=== PATIENT | male | born 1950 | race Caucasian/White ===

== ENCOUNTER → 2018-08-23 | Outpatient (CLI) | payer BC, MEDICARE ==
--- NOTE | 2018-08-23 14:34 | EXE ---
[place] [address] STRESS ECHOCARDIOGRAM Name: ARNEL GRIJALVA Room: [facility]#: [id number] Admission: 08/23/18 Attend Phys: Arnel Griffin Discharge: Date of : 52 Date of Service: 08/23/18 1434 Report #: [id number] THIS REPORT FOR: //name// APPROVED REPORT Study performed: 08/23/2018 11:31:09 Exam: Stress Echocardiogram Indication: Abnormal EKG Patient Location: Out-Patient Stress Nurse: Debbie Baez RN Supervising Physician: Arnel Santoyo MD Ht: 6 ft 2 in HR: 63 bpm BP: 114/72 mmHg Medical History Cardiac Risk Factors: Tobacco History (Former), FHX of CAD Procedure The patient underwent an Exercise Stress Test using the Timi Protocol. Blood pressure, heart rate, and EKG were monitored. An Echocardiogram was performed by medical chief technician in four stages in quad fashion. At peak stress, four selected images were obtained and placed side by side with resting images for comparison. Stress Test Details Stress Test: Exercise stress testing was performed using a Timi protocol. HR Resting HR: 63 bpm Max Heart Rate (APMHR): 153 bpm Max HR Achieved: 129 bpm Target HR (85% APMHR): 130 bpm % of APMHR: 84 Recovery HR: 80 bpm HR response to stress: Normal HR response to stress BP Resting BP: 114/72 mmHg Max BP: 185/97 mmHg Recovery BP: 141/56 mmHg BP response to stress: Normal blood pressure response to stress. ECG Resting ECG: Sinus Rhythm, nonspecific ST-T [address] [address] STRESS ECHOCARDIOGRAM Name: ARNEL GRIJALVA Room: [facility]#: [id number] Admission: 08/23/18 Attend Phys: Arnel Griffin Discharge: Date of : 52 Date of Service: 08/23/18 1434 Report #: [id number] Stress ECG: Sinus Rhythm, nonspecific ST-T abnormalities ST Change: None Arrhythmia: None Recovery ECG: Sinus Rhythm, nonspecific ST-T abnormalities Recovery ST Change: None Recovery Arrhythmia: None Clinical Reason for Termination: Maximal effort, Dyspnea, Leg pain/Claudication Exercise duration: 5 min 19 sec Highest Stage Achieved: Stage 2: 2.5 mph at 12% grade. Exercise capacity: 7.05 METs The patient tolerated standard Timi protocol exercise without significant cardiac symptoms. Stress ECG Conclusion The baseline 12-lead EKG shows sinus rhythm with T-wave inversion in the inferior and anterolateral leads. EKGs obtained during and post exercise showed sinus rhythm and sinus tachycardia without significant ST or T wave changes when compared to baseline. There were no stress-induced arrhythmias. Pre-Stress Echo The resting Echocardiogram showed normal left ventricular contractility with an estimated Ejection Fraction of about 55-60%. Post-Stress Echo The stress Echocardiogram showed abnormal left ventricular contractility with an estimated Ejection Fraction of about 60-65%. There appears to be stress-induced hypokinesis involving the septum. Endocardial definition in other regions was not adequate for evaluation. Clinical There appears to be stress-induced hypokinesis involving the septum. Endocardial definition in other regions was not adequate for evaluation. Conclusion Clinical Response: Non-ischemic Exercise Capacity: Average Stress ECG Response: Non-ischemic Stress Echo Images: [place] [address] STRESS ECHOCARDIOGRAM Name: ARNEL GRIJALVA Room: [facility]#: [id number] Admission: 08/23/18 Attend Phys: Arnel Griffin Discharge: Date of : 52 Date of Service: 08/23/18 1434 Report #: [id number] Post stress echocardiographic images suggest a stress-induced wall motion abnormality involving at least the septum. Other romero were not well visualized. This would be considered a high risk study. Other Information Study Quality: Fair <Conclusion> Post stress echocardiographic images suggest a stress-induced wall motion abnormality involving at least the septum. Other romero were not well visualized. This would be considered a high risk study. <ELECTRONICALLY SIGNED> By: Arnel Santoyo MD, [facility] 08/23/18 1434 143 1434 Arnel Santoyo MD, FACC /INF
== END ==
LOC: M.CRD 08-22 13:00
DX: I21.19 ST elevation (STEMI) myocardial infarction involving other coronary artery of inferior wall (principal); R94.31 Abnormal electrocardiogram [ECG] [EKG]; R61 Generalized hyperhidrosis; R06.09 Other forms of dyspnea

== ENCOUNTER → 2018-08-23 | Outpatient (CLI) | payer OTHER | LOC: M.CT 09:53 | DX: Z13.6 Encounter for screening for cardiovascular disorders (principal) ==

== ENCOUNTER 2018-09-02 09:00 | Observation (INO) | payer BC, MEDICARE ==
[~2018-09-02] VITALS: Ht 190.5 cm; Wt 107.5 kg
[2018-09-02] VITALS (18 sets, daily range): BP systolic 125–150; BP diastolic 74–99
[~2018-09-02 09:00] MED LIST: ASPIR 8181 MG PO; CENTRUM SILVER1 EAC4 PO; COMBIGAN EYE DR10 ML INTRAOCULR; LATANOPROST 0.2.5 ML OPHTHALMIC
[2018-09-02 09:29] LABS: HEMATOCRIT 45.5 % (42.0-52.0); HEMOGLOBIN 15.6 gm/dL (14.0-18.0); MCH 30.8 pg (26.0-34.0); MCHC 34.2 g/dL (28.0-37.0); MPV 7.8 fl. (7.2-11.1); RBC 5.05 mil/uL (4.50-6.00); RDW-CV 12.9 % (10.5-14.5); WBC 12.6 thou/uL (4.0-11.0)
[2018-09-02 09:39] LABS: APTT 28.9 Seconds (25.0-31.3); PROTIME 10.5 Seconds (9.20-11.50)
[2018-09-02 09:49] LABS: ANION GAP 9 mmol/L (7-16); BUN 13 mg/dL (7-18); CALCIUM 8.8 mg/dL (8.5-10.1); CHLORIDE 102 mmol/L (98-107); CO2 28 mmol/L (21-32); CREATININE 1.1 mg/dL (0.6-1.3); GLUCOSE 103 mg/dL (70-99); POTASSIUM 4.2 mmol/L (3.5-5.1); SODIUM 139 mmol/L (136-145)
[2018-09-02 09:54] LABS: CHOLESTEROL 182 mg/dL (<200); HDL CHOLESTEROL 41 mg/dL (>40); LDL CHOLESTEROL 107 mg/dL (<100); TC:HDL 4.4 Ratio (Not establshd); TRIGLYCERIDE 172 mg/dL (<150); VLDL 34 mg/dL (<40)
[2018-09-02 10:00] LABS: SERUM ASSESSMENT Clear
--- NOTE | 2018-09-02 13:00 | NUR ---
RECEIVED REPORT FROM ASSOCIATE GENETICS PROFESSOR AND ASSUMED CARE OF PT @ 1300.PT IS A/O X4,VSS,TRACING SR WITH 1ST DEGREE ON THE MONITOR.POST CATH VSS.RIGHT RADIAL CATH SITE CLEAN,DRY,AND INTACT.IV RIGHT AC PATENT WITH IVF INFUSING PER ORDERS.PT IS CALM AND COOPERATIVE WITH NO C/O PAIN AT TIME OF ASSESSMENT.PT IS UP AD DONALD IN ROOM. AT BEDSIDE.WILL CONTINUE TO MONITOR.
--- NOTE | 2018-09-02 16:36 | EKG ---
[place] [address] ELECTROCARDIOGRAM REPORT Name: ARNEL GRIJALVA Room: [address] M.R.#: [id number] Admission: 09/02/18 Attend Phys: Arnel Santoyo MD Discharge: Date of : 52 Report #: [id number] THIS REPORT FOR: //name// [facility] Test Date: 2018-09-02 Test Time: 10:22:37 Pat Name: ARNEL GRIJALVA Department: Room: [facility] Gender: M Therapy Assistant: : 1950 Requested By: Arnel Santoyo Order Number: [id number] Deborah MD: Arnel Santoyo Measurements Intervals [place] Rate: 66 P: 50 [place]: 201 QRS: -20 QRSD: 104 T: -52 QT: 440 QTc: 461 Interpretive Statements Sinus rhythm Inferior infarct, age indeterminate No previous ECG available for comparison Electronically Signed On 09-02-2018 16:36:42 PHOTOGRAPHIC AIDE by Arnel Santoyo [email or web address] <ELECTRONICALLY SIGNED> By: Arnel Santoyo MD, [facility] 09/02/18 1636 1022 1022 Arnel Santoyo MD, FACC /EPI
--- NOTE | 2018-09-02 16:37 | EKG ---
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 09/02/18 1637 1356 1356 Kojo Santoyo MD, FACC /EPI
--- NOTE | 2018-09-02 17:05 | CARD ---
[address] [address] CARDIAC CATH REPORT Name: KOJO GRIJALVA Room: [facility] [place]#: [id number] Admission: 09/02/18 Attend Phys: Kojo Santoyo MD Discharge: Date of : 52 Report #: [id number] THIS REPORT FOR: //name// APPROVED REPORT Study performed: 09/02/2018 10:53:27 Patient Details Patient Status: OBS Room #: The patient is a 68 year-old male Event Personnel Kojo Santoyo Lead Ruby On Rails Developer, Sabrina Steele Monitor, Saeed Rubi (Diana) Stephanie, , Iqra Portillo RN Wreath Machine Tender, Rajinder Soliz Leisure Studies Professor Procedures Performed Art Access - R radial artery , Selective Right and Left Coronary AngiographyLeft Heart Cath w/or w/o Coronaries [id number] LHC , Left VentriculogramDES Place w/wo Plasty Single CIRC [id number] Indication Positive stress test Risk Factors Tobacco History () Admission/Lab Medications/Medications given during procedure Heparin Unfract. Procedure Narrative The patient was brought electively to the Cardiac Catheterization Laboratory and was prepped and draped in a sterile manner. The right wrist was infiltrated with 2% Lidocaine subcutaneous anesthesia. A Slender Glidesheath sheath was inserted into the right radial artery. Coronary angiography was performed using coronary diagnostic catheters. The right coronary system was accessed and visualized with a [place] 4.0 6fr catheter. The left coronary system was accessed and visualized with a [place] 4.0 6fr catheter. The left ventricle was accessed and visualized with a PC: Pig 6fr catheter. Left ventricular/Aortic Valve gradient assessed via catheter pullback. Left ventriculogram was performed in SHEA projection. Closure device was deployed with a 6 Fr Vasc-Band Reg 24cm. The patient tolerated the procedure well and there [place] [address] CARDIAC CATH REPORT Name: KOJO GRIJALVA Room: [address]#: [id number] Admission: 09/02/18 Attend Phys: Kojo Santoyo MD Discharge: Date of : 52 Report #: [id number] the procedure. There was no hematoma. Intraoperative Conscious Sedation Sedation start time: 11:28 Case end Time: 12:46 Fentanyl 50 mcg Versed 2 mg Fluoro Time: 12 minutes Dose: DAP 864589 cGycm2 2171.58 mGy Contrast Type and Amount: Omnipaque 280 ml Coronary Angiography The patient's coronary anatomy is right dominant. Diagnostic Cath Left Main Normal. LAD 10% plaquing in the proximal and mid vessel. The distal vessel is normal. Diagonal 1 10% plaquing proximally. Diagonal 2 Normal. Circumflex The circumflex has an anomalous takeoff from the proximal right coronary artery. There is 90% narrowing in the proximal portion of the vessel. The remainder the vessel is free of significant disease. OM1 Normal. Right Coronary Moderately plaqued proximally. Subtotally occluded in the midportion after the takeoff of the acute marginal branch. The distal vessel is seen to fill faintly beyond this with right coronary injections. R PDA Appears normal. Fills extensively by [id number] collaterals. RPLV Appears normal. Fills extensively by [id number]-[id number] collaterals. Left Ventriculography The left ventricle is mild to moderately dilated in size with decreased contractility. The left ventricular ejection fraction is estimated to be 35-40%. There is 1+ mitral insufficiency. The inferior wall appears almost aneurysmal and certainly akinetic. Hemodynamics The aortic pressure is 123/73 mmHg with a mean of mmHg. The left ventricular pressure is 131/-8 mmHg with a mean of mmHg. The left ventricular end diastolic pressure is 9 mmHg. There was no gradient across the aortic valve upon [place] [address] CARDIAC CATH REPORT Name: KOJO GRIJALVA Room: [address] M.R.#: [id number] Admission: 09/02/18 Attend Phys: Kojo Santoyo MD Discharge: Date of : 52 Report #: [id number] ventricle to the aorta revealed no gradient across the aortic valve. PCI Technique Lesion Anticoagulation was achieved with Heparin. Patient was preloaded with Brillinta. Percutaneous coronary intervention was performed on the proximal circumflex artery segment. The lesion stenosis prior to intervention was 90% with LESLEE 3 flow. A 6F MPA 1 Guide Catheter was used to engage the rca ostium. A IG: BMW 190cm Interventional Guidewire was used to cross the lesion. BALLOON DILATION A Balloon catheter Trek RX 2.5 X 12 was inserted and inflated up to 8.00atm for 12seconds. Repeat angiography revealed the following post-dilatation results: 50% stenosis. Circumflex artery had an anamolous take-off from the proximal rca and appeared to extend to the lateral wall of the left ventricle by extending posterior to the ascending aorta. STENT DEPLOYMENT A drug-eluting stent Rickie RX Stent 2.23W90bl was inserted and inflated up to 10.00atm for 13seconds. Additional Inflation: 10.00atm for 9seconds. Tom wire was required to advance the stent to the area of stenosis because of acute take-off of the circumflex from the proximal rca. Final angiography reveals 0 % stenosis with LESLEE 3 flow. Conclusion 1. Two-vessel coronary artery disease as outlined above. 2. Moderate left ventricular systolic dysfunction with wall motion abnormalities as above. 3. Minimally elevated left particular end-diastolic pressure. 4. successful placement of a single drug eluting stent in the proximal portion of the anamolous circumflex artery. Recommendations Smoking Cessation Cardiac Rehabilitation Referral Aggressive Medical Therapy Medications [place] [address] CARDIAC CATH REPORT Name: KOJO GRIJALVA Room: [address] [place]#: [id number] Admission: 09/02/18 Attend Phys: Kojo Santoyo MD Discharge: Date of : 52 Report #: [id number] Diagnostic Cath Approved by: Kojo Santoyo MD Date/Time: <ELECTRONICALLY SIGNED> By: Rajinder Soliz MD, FACC 09/02/18 170 04 04Dadelma Soliz MD, FACC /INF
--- NOTE | 2018-09-02 18:22 | NUR ---
POST CATH VS COMPLETED AND STABLE.RIGHT RADIAL CATH SITE CLEAN,DRY,AND INTACT.RADIAL BAND IN PLACE WITH ALL AIR DECREASED.CARDIAC MONITORING IN PLACE WITH NO CHANGES.PT REMAINS ON ROOM AIR.IV RIGHT AC PATENT WITH IVF INFUSING PER ORDERS.PT INFORMED OF PLAN OF CARE AND COMMUNICATES UNDERSTANDING.PT HAS AMBULATED IN ROOM BY SELF.HOURLY ROUNDING COMPLETED FOR PT SAFETY.CALL LIGHT AND FALL PRECAUTIONS IN PLACE.WILL CONTINUE MONITOR FOR DURATION OF SHIFT.
[2018-09-03 03:58] VITALS: BP 147/78
[2018-09-03 04:55] LABS: HEMATOCRIT 40.6 % (42.0-52.0); HEMOGLOBIN 13.8 gm/dL (14.0-18.0); MCH 30.8 pg (26.0-34.0); MCV 90.6 fL (80.0-100.0); MPV 7.9 fl. (7.2-11.1); RBC 4.49 mil/uL (4.50-6.00); RDW-CV 12.7 % (10.5-14.5); WBC 11.3 thou/uL (4.0-11.0)
[2018-09-03 05:58] LABS: TROPONIN-I LEVEL 0.92 ng/mL (<0.06)
[2018-09-03 07:45] VITALS: BP 125/72
--- NOTE | 2018-09-03 07:49 | NUR ---
PT IS ABLE TO COMMUNICATE HIS NEEDS TO STAFF EFFECTIVELY. HE HAS DENIED THE NEED FOR PAIN MEDICATION UP TO THIS TIME. RIGHT RADIAL CATH SITE DRESSING IS C/D/I UP TO THIS TIME. VERY LIKELY DISCHARGE TODAY.
[2018-09-03 08:57] VITALS: BP 134/77
--- NOTE | 2018-09-03 09:00 | NUR ---
RECEIVED REPORT FROM SANTIAGO AND ASSUMED CARE OF PT @ 1598.PT IS A/O X4,VSS,TRACING SR ON THE MONITOR.IV PATENT AND SALINE LOCKED.CATH SITE RIGHT RADIAL CLEAN,DRY,AND INTACT.PT IS CALM AND COOPERATIVE WITH NO C/O PAIN AT TIME OF ASSESSMENT.PT IS UP AD DONALD IN ROOM.PT LEFT SITTING IN BED WITH CALL LIGHT WITHIN REACH.WILL CONTINUE TO MONITOR.
[2018-09-03] MEDS ORDERED: LIPITOR 20 MG T20 M1 PO (09:51)
[2018-09-03] MEDS ORDERED: BRILINTA90 MG PO (09:52)
[2018-09-03] MEDS ORDERED: NITROGLYCERIN0.4 MG SUBLING (09:53)
--- NOTE | 2018-09-03 10:16 | NUR ---
PT OK FOR DISCHARGE.PAPERWORK COMPLETED AND GIVEN TO PT.SCRIPTS GIVEN WITH EDUCATION.IV REMOVED.HEART MONITOR REMOVED AND RETURNED TO NURSING STATION.ALL PERSONAL BELONGINGS PACKED AND TAKEN WITH PT.PT EDUCATED ON POST RADIAL CATH RESTRICTIONS.PT WHEELED DOWN BY NURSING STAFF TO PERSONAL VEHICLE.
--- NOTE | 2018-09-03 12:14 | EKG ---
[place] [address] ELECTROCARDIOGRAM REPORT Name: KOJO GRIJALVA Room: [address]#: [id number] Admission: 09/02/18 Attend Phys: Kojo Santoyo MD Discharge: 09/03/18 Date of : 52 Report #: [id number] THIS REPORT FOR: //name// [facility] Test Date: 2018-09-03 Test Time: 08:23:44 Pat Name: KOJO GRIJALVA Department: Room: [place] [address] Gender: M Foster Care Social Worker: : 1950 Requested By: Rajinder Soliz Order Number: [id number] Reading MD: Marco A Graves Measurements Intervals [place] Rate: 63 P: 52 [place]: 198 QRS: -9 QRSD: 111 T: -60 QT: 439 QTc: 450 Interpretive Statements Sinus rhythm Inferior infarct, age indeterminate Compared to ECG 09/02/2018 13:56:02 No significant changes Electronically Signed On 09-03-2018 12:13:46 TRUCK SHOP MECHANIC by Marco A Graves [email or web address] <ELECTRONICALLY SIGNED> By: Marco A Graves MD, [facility] 09/03/18 1213 0823 0823 Marco A Graves MD, [facility] /EPI
--- NOTE | 2018-09-05 14:51 | D ---
[address] [address] DISCHARGE SUMMARY Name: ARNEL GRIJALVA Room: [address] [place]#: [id number] Admission: 09/02/18 Attend Phys: Arnel Santoyo MD Discharge: 09/03/18 Date of : 52 Report #: [id number] THIS REPORT FOR: //name// CC: Arnel Santoyo DATE OF SERVICE: 09/03/2018 FINAL DIAGNOSES: 1. Unstable angina. 2. Status post percutaneous coronary intervention electively to the patient's left circumflex coronary artery. 3. Hyperlipidemia. 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 HOSPITAL SUMMARY: The patient had been having angina type symptoms, had an abnormal workup as an outpatient and he presented for an elective cardiac catheterization and was found to have a high-grade stenosis to a circumflex coronary artery, normal LV function, and normal LAD and RCA. It is noted he has an anomalous takeoff of his circumflex from his right coronary artery, which itself was free of significant disease. He underwent successful percutaneous coronary artery intervention to the anomalous circumflex coronary artery. DISCHARGE MEDICATIONS: Will include aspirin 81 mg daily, Brilinta 90 mg p.o. b.i.d., nitroglycerin p.r.n., and atorvastatin 20 mg daily. PERTINENT LABORATORY DATA: Total cholesterol is 182, LDL was 107, HDL 41, triglycerides 172. Discharge creatinine 1.0. Discharge troponin 0.92. FOLLOWUP: He will follow up with nurse practitioner within 1 month. <ELECTRONICALLY SIGNED> By: Marco A Graves MD, FACC 09/05/18 1451 1014 1808Marco A Graves MD, FACC /nt
== END 2018-09-03 10:59 | disposition home or self-care (01) ==
LOC: M.CL 09:00 → M.TBA-CV 13:13 → M.2W 13:13
PROVIDERS: Internal Medicine Cardiovascular Disease; ADMIT Internal Medicine Cardiovascular Disease
DX: I25.110 Atherosclerotic heart disease of native coronary artery with unstable angina pectoris (principal); E78.5 Hyperlipidemia, unspecified; R94.39 Abnormal result of other cardiovascular function study; I25.2 Old myocardial infarction; R61 Generalized hyperhidrosis; R11.0 Nausea; F17.210 Nicotine dependence, cigarettes, uncomplicated; I73.9 Peripheral vascular disease, unspecified; Z98.890 Other specified postprocedural states; Z79.899 Other long term (current) drug therapy; Z72.89 Other problems related to lifestyle; Z79.82 Long term (current) use of aspirin

== ENCOUNTER 2019-02-05 07:26 | Emergency (ER) | payer BC, MEDICARE ==
[~2019-02-05] VITALS: Ht 185.4 cm; Wt 106.6 kg
[~2019-02-05 07:26] MED LIST changes: +BRILINTA90 MG PO; +LIPITOR 20 MG T20 M1 PO; +NITROGLYCERIN0.4 MG SUBLING
[2019-02-05] MEDS ORDERED: LISINOPRIL2.5 MG PO (07:43)
[2019-02-05] MEDS ORDERED: COREG6.25 MG PO (07:43)
[2019-02-05 08:03] LABS: ABSOLUTE BASOPHILS 0.1 thou/uL (0.0-0.2); ABSOLUTE EOSINOPHILS 0.3 thou/uL (0.0-0.7); ABSOLUTE LYMPHOCYTES 2.4 thou/uL (0.8-5.3); ABSOLUTE MONOCYTES 0.8 thou/uL (0.0-1.2); ABSOLUTE NEUTROPHILS 7.2 thou/uL (1.6-8.1); BASOPHILS 1.3 %; EOSINOPHILS 2.7 %; HEMATOCRIT 43.8 % (42.0-52.0); HEMOGLOBIN 15.2 gm/dL (14.0-18.0); LYMPHOCYTES 22.5 %; MCH 31.4 pg (26.0-34.0); MCHC 34.8 g/dL (28.0-37.0); MCV 90.2 fL (80.0-100.0); MONOCYTES 7.2 %; NUCLEATED RBCS 0 /100WBC; PLATELET COUNT* 214 thou/uL (150-400); POLYS 66.3 %; RBC 4.85 mil/uL (4.50-6.00); RDW-CV 13.2 % (10.5-14.5); WBC 10.9 thou/uL (4.0-11.0)
[2019-02-05 08:06] LABS: ANION GAP 9 mmol/L (7-16); BUN 15 mg/dL (7-18); CALCIUM 8.9 mg/dL (8.5-10.1); CHLORIDE 105 mmol/L (98-107); CO2 27 mmol/L (21-32); CREATININE 1.1 mg/dL (0.6-1.3); GLUCOSE 112 mg/dL (70-99); POTASSIUM 4.5 mmol/L (3.5-5.1); SODIUM 141 mmol/L (136-145)
[2019-02-05 08:18] LABS: ALBUMIN 3.6 g/dL (3.4-5.0); ALKALINE PHOSPHATASE 103 U/L (46-116); NT-PRO BRAIN NAT PEPTIDE 463 pg/mL (<300); SGOT 16 U/L (15-37); SGPT 28 U/L (30-65); TOTAL PROTEIN 7.1 g/dL (6.4-8.2); TROPONIN-I LEVEL <0.06 ng/mL (<0.06)
[2019-02-05] MEDS ORDERED: VENTOLIN HFA 1818 GM INH (10:37)
[2019-02-05] MEDS ORDERED: PREDNISONE50 MG PO (10:37)
[2019-02-05 10:51] VITALS: BP 136/74
--- NOTE | 2019-02-06 12:40 | EKG ---
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 Attendant: DEYSI : 1950 Requested By: Darius Chi Order Number: [id number] MD: Max Pickett Measurements Intervals [place] Rate: 64 P: 62 [place]: 194 QRS: 22 QRSD: 112 T: -51 QT: 414 QTc: 427 Interpretive Statements Sinus rhythm Inferior infarct, age indeterminate Minimal ST elevation, anterior leads Compared to ECG 09/03/2018 08:23:44 ST (T wave) deviation now present Myocardial infarct finding still present Electronically Signed On 02-06-2019 12:40:37 CDT by Max Pickett [email or web address] <ELECTRONICALLY SIGNED> By: Max Pickett MD, [facility] 02/06/19 1240 0749 0749 Max Pickett MD, [facility] /EPI
== END 2019-02-05 10:54 | disposition home or self-care (01) ==
LOC: M.ERS 07:26
PROVIDERS: Emergency Medicine Emergency Medical Services
DX: J40 Bronchitis, not specified as acute or chronic (principal); F17.210 Nicotine dependence, cigarettes, uncomplicated; I25.10 Atherosclerotic heart disease of native coronary artery without angina pectoris

== ENCOUNTER → 2019-06-20 | Outpatient (CLI) | payer BC, MEDICARE ==
[~2019-06-20] MED LIST changes: +COREG6.25 MG PO; +LISINOPRIL2.5 MG PO; +PREDNISONE50 MG PO; +VENTOLIN HFA 1818 GM INH
--- NOTE | 2019-07-04 08:02 | PF ---
[address] [address] PULMONARY FUNCTION REPORT Name: ARNEL GRIJALVA [id number] Admission: 06/20/19 Attend Phys: Shahid Casas DO Discharge: Date of : 52 Report #: [id number] THIS REPORT FOR: //name// CC: Shahid Casas DATE OF SERVICE: 06/20/2019 REQUESTING PHYSICIAN: Dr. Casas. FINDINGS: Spirometry reveals a severe decrease in FEV1 to 1.73, which was 45% of predicted. FVC is 3.76, which was 72% of predicted. FEV1/FVC ratio was 46%. Mid flows were severely decreased. There was no significant change seen after inhaled bronchodilator. Lung volumes by plethysmography revealed TLC to be high normal range. Residual volume was increased. Diffusion capacity was mildly diminished. The patient was unable to do the maneuvers in order to measure resistance. IMPRESSION: These studies are consistent with severe obstructive process. No significant change seen after inhaled bronchodilator. There is evidence of air trapping and a mild decrease in diffusion capacity. <ELECTRONICALLY SIGNED> By: Liz Durham MD 07/04/19 0802 1021 1142Liz Durham MD /nt
== END ==
LOC: M.PUL 13:50
DX: R05 Cough (principal); Z72.0 Tobacco use

== ENCOUNTER → 2019-09-22 | Outpatient (CLI) | payer BC, MEDICARE ==
[2019-09-22 11:59] LABS: CHOLESTEROL 140 mg/dL (<200); HDL CHOLESTEROL 51 mg/dL (>40); LDL CHOLESTEROL 66 mg/dL (<100); TC:HDL 2.7 Ratio (Not establshd); TRIGLYCERIDE 117 mg/dL (<150); VLDL 23 mg/dL (<40)
[2019-09-22 12:00] LABS: SERUM ASSESSMENT Clear
== END ==
LOC: M.LAB 11:26
PROVIDERS: Internal Medicine Cardiovascular Disease
DX: E78.2 Mixed hyperlipidemia (principal)